=== PATIENT | male | born 1960 | race Caucasian/White ===

== ENCOUNTER 2023-07-19 09:40 | Outpatient (CLI) | payer OTHER ==
[2023-07-19 11:32] LABS: Anion Gap 12 mmol/L (10-20); BUN (Urea Nitrogen) 13 mg/dL (8.4-25.7); Calc. Creatinine Clearance 0 mL/min (70-130); Carbon Dioxide 22 mmol/L (23-31); Chloride 105 mmol/L (98-107); Estimated GFR 98; Glucose 91 mg/dL (80-115); Potassium 4.4 mmol/L (3.5-5.1); Sodium 135 mmol/L (136-145)
== END 2023-07-19 09:41 | disposition home or self-care (01) ==
LOC: LABBT 09:40
PROVIDERS: ATTEND Surgery Surgery of the Hand
DX: Z01.818 Encounter for other preprocedural examination (principal); M18.12 Unilateral primary osteoarthritis of first carpometacarpal joint, left hand
CPT/HCPCS: 80048; 93005; 93010

== ENCOUNTER → 2023-07-20 | Day surgery (SDC) | payer OTHER ==
[2023-07-18 12:05] VITALS: BMI 26.4
[~2023-07-20] MED LIST: Bupivacaine PF 0.5% 30 ML VIAL ONE; EPINEPHrine 1 MG/ML AMP ONE; Famotidine/PF 20 mg/2ml Vial ONE; Glycopyrrolate 0.2 MG/ML 5 ML SYRINGE ONE; Ketorolac Tromethamine 30 MG/ML VIAL ONE; Lidocaine 1% PF 5 ML VIAL ONE; Metoclopramide HCl 10 MG/2 ML VIAL ONE; Ondansetron PF 4 MG/2 ML Vial ONE; PHENYLEPHRINE-NS 100 MCG/ML 10 ML SYRINGE ONE; PROPOFOL 200 MG/20 ML VIAL ONE; ePHEDrine Sulfate 50 MG/10 ML VIAL ONE; fentaNYL 50 mcg/mL 1 mL Vial ONE
== END ==
LOC: SDC 10:36
PROVIDERS: ATTEND Surgery Surgery of the Hand
PROC: 0RQS0ZZ Repair Right Carpometacarpal Joint, Open Approach (ICD-10-PCS; principal; 2023-07-20)
DX: M18.11 Unilateral primary osteoarthritis of first carpometacarpal joint, right hand (principal); F41.9 Anxiety disorder, unspecified; F32.A Depression, unspecified; K21.9 Gastro-esophageal reflux disease without esophagitis; Z91.09 Other allergy status, other than to drugs and biological substances; Z79.899 Other long term (current) drug therapy
CPT/HCPCS: C1713; J0171; J1885; J2405; J2704; J2765; J3010; S0020; S0028

== ENCOUNTER 2023-08-11 06:50 | Day surgery (SDC) | payer OTHER ==
[2023-08-09 12:20] VITALS: BMI 26.9
[2023-08-11] MEDS ORDERED: Ropivacaine 0.2% HCl/PF 20 ML ONE (08:15)
[2023-08-11] MEDS ORDERED: fentaNYL 50 mcg/mL 1 mL Vial ONE (08:15)
[2023-08-11] MEDS ORDERED: Midazolam HCl 2 mg/2 ml Vial ONE (08:15)
[2023-08-11] MEDS ORDERED: Ropivacaine 0.5% HCl/PF (150 MG/30 ML VIAL) ONE (08:15)
[2023-08-11] MEDS ORDERED: EPINEPHrine 1 MG/ML AMP ONE (09:11)
[2023-08-11] MEDS ORDERED: Lidocaine 1% (PF) 30 ML VIAL ONE (09:11)
[2023-08-11] MEDS ORDERED: CEFAZOLIN 2 GM VIAL ONE (09:20)
[2023-08-11] MEDS ORDERED: Sodium Chloride 0.9% 100 ML ONE (09:20)
[2023-08-11] MEDS ORDERED: HYDROcodone/Acetaminophen 10/325 mg Tablet PO PRN ×2 (09:30)
[2023-08-11] MEDS ORDERED: Ondansetron PF 4 MG/2 ML Vial IVP PRN (09:30)
[2023-08-11] MEDS ORDERED: Promethazine HCl 25 MG/ML VIAL IM PRN (09:30)
[2023-08-11] MEDS ORDERED: traMADol HCl 50 MG TAB PO PRN ×2 (09:30)
[2023-08-11] MEDS ORDERED: Zolpidem Tartrate 5 MG TAB PO PRN (09:30)
[2023-08-11] MEDS ORDERED: Ropivacaine 0.2% 550 ML 550 ML NERVE BLCK SCH (09:30)
[2023-08-11] MEDS ORDERED: Rocuronium Bromide 10 MG/ML (10ML VIAL) ONE (10:09)
[2023-08-11] MEDS ORDERED: ePHEDrine Sulfate 50 MG/10 ML VIAL ONE (10:09)
[2023-08-11] MEDS ORDERED: PHENYLEPHRINE-NS 100 MCG/ML 10 ML SYRINGE ONE (10:09)
[2023-08-11] MEDS ORDERED: Ondansetron PF 4 MG/2 ML Vial ONE (10:09)
[2023-08-11] MEDS ORDERED: Lidocaine 1% PF 5 ML VIAL ONE (10:09)
[2023-08-11] MEDS ORDERED: PROPOFOL 200 MG/20 ML VIAL ONE (10:09)
[2023-08-11] MEDS ORDERED: Ketorolac Tromethamine 30 MG/ML VIAL IVP SCH (12:00)
== END 2023-08-11 13:45 | disposition home or self-care (01) ==
LOC: SDC 06:50
PROVIDERS: ATTEND Orthopaedic Surgery
DX: S46.011A Strain of muscle(s) and tendon(s) of the rotator cuff of right shoulder, initial encounter (principal); S43.431A Superior glenoid labrum lesion of right shoulder, initial encounter; F32.A Depression, unspecified; F41.9 Anxiety disorder, unspecified; K21.9 Gastro-esophageal reflux disease without esophagitis; C61 Malignant neoplasm of prostate; Z79.899 Other long term (current) drug therapy; Z96.652 Presence of left artificial knee joint; Z79.4 Long term (current) use of insulin
CPT/HCPCS: A4306; C1713; J0171; J2001; J2250; J2405; J2704; J2795; J3010; J3490

== ENCOUNTER 2023-12-30 11:48 | Observation (INO) | payer OTHER ==
[2023-12-30] MEDS ORDERED: Aspirin Chewable 81 MG TAB ONE (12:12)
[2023-12-30 12:14] LABS: #Basophils 0.1 thou/uL (0.0-0.2); #Eosinphils 0.1 thou/uL (0.0-0.7); #Monocytes 1.2 thou/uL (0.11-0.59); #Neutrophils 12.6 thou/uL (1.40-6.50); %Basophils 0.4 % (0.0-1.0); %Eosinophils 0.4 % (0.0-10.0); %Lymphocytes 14.8 % (21.0-51.0); %Monocytes 7.1 % (0.0-10.0); Hematocrit 41.3 % (42.0-52.0); Hemoglobin 13.8 g/dL (14.0-18.0); Mean Corpuscular HGB CONC 33.4 g/dL (32.0-36.0); Mean Corpuscular Hemoglobin 30.5 pg (27.0-31.0); Mean Corpuscular Volume 91.4 fl (78.0-98.0); Mean Platelet Volume 9.8 fL (7.4-10.4); Platelet Count 266 10x3/uL (130-400); RBC Distribution Width 13.6 % (11.5-14.5); Red Blood Cell (RBC) Count 4.52 mill/uL (4.70-6.10); White Blood Cell (WBC) Count 16.4 10x3/uL (4.8-10.8)
[2023-12-30 12:43] LABS: ALT (SGPT) 27 U/L (8-55); AST (SGOT) 26 U/L (5-34); Albumin 3.7 g/dL (3.4-4.8); Alkaline Phosphatase 104 U/L (40-110); Anion Gap 13 mmol/L (10-20); BUN (Urea Nitrogen) 11 mg/dL (8.4-25.7); Bilirubin, Total 1.1 mg/dL (0.2-1.2); Calc. Creatinine Clearance 0 mL/min (70-130); Calcium 8.8 mg/dL (7.8-10.44); Carbon Dioxide 20 mmol/L (23-31); Chloride 108 mmol/L (98-107); Estimated GFR 76; Globulin 2.5 g/dL (2.4-3.5); Glucose 129 mg/dL (80-115); Potassium 3.5 mmol/L (3.5-5.1); Protein, Total 6.2 g/dL (5.8-8.1); Sodium 137 mmol/L (136-145)
[2023-12-30 12:44] LABS: Troponin I Less than 0.010 ng/mL (< 0.028)
[2023-12-30] MEDS ORDERED: Acetaminophen 325 MG TAB PO PRN (14:13)
[2023-12-30] MEDS ORDERED: Ondansetron PF 4 MG/2 ML Vial IVP PRN (14:13)
[2023-12-30 17:28] LABS: Troponin I 0.077 ng/mL (< 0.028)
[2023-12-30] MEDS ORDERED: Famotidine/PF 20 mg/2ml Vial ONE (21:54)
[2023-12-30] MEDS: Melatonin 3 MG TAB PO PRN (22:26)
[2023-12-30] MEDS: Famotidine/PF 20 mg/2ml Vial SLOW IVP SCH (22:27)
[2023-12-31 01:02] VITALS: BMI 26.4
[2023-12-31 03:53] LABS: #Basophils 0.1 thou/uL (0.0-0.2); #Eosinphils 0.3 thou/uL (0.0-0.7); #Neutrophils 5.9 thou/uL (1.40-6.50); %Basophils 0.6 % (0.0-1.0); %Eosinophils 3.2 % (0.0-10.0); %Lymphocytes 29.5 % (21.0-51.0); %Monocytes 9.3 % (0.0-10.0); %Neutrophils 57.3 % (42.0-75.0); Hematocrit 39.7 % (42.0-52.0); Hemoglobin 13.4 g/dL (14.0-18.0); Mean Corpuscular HGB CONC 33.8 g/dL (32.0-36.0); Mean Corpuscular Hemoglobin 30.9 pg (27.0-31.0); Mean Corpuscular Volume 91.7 fl (78.0-98.0); Mean Platelet Volume 9.6 fL (7.4-10.4); Platelet Count 277 10x3/uL (130-400); RBC Distribution Width 13.7 % (11.5-14.5); Red Blood Cell (RBC) Count 4.33 mill/uL (4.70-6.10); White Blood Cell (WBC) Count 10.3 10x3/uL (4.8-10.8)
[2023-12-31 04:07] LABS: Anion Gap 10 mmol/L (10-20); BUN (Urea Nitrogen) 11 mg/dL (8.4-25.7); Calc. Creatinine Clearance 105 mL/min (70-130); Calcium 8.6 mg/dL (7.8-10.44); Carbon Dioxide 21 mmol/L (23-31); Chloride 113 mmol/L (98-107); Estimated GFR 97; Glucose 95 mg/dL (80-115); Potassium 3.8 mmol/L (3.5-5.1); Sodium 140 mmol/L (136-145)
[2023-12-31] MEDS ORDERED: HYDROcodone/Acetaminophen 10/325 mg Tablet ONE (06:46)
[2023-12-31] MEDS: HYDROcodone/Acetaminophen 10/325 mg Tablet PO PRN (06:54)
[2023-12-31] MEDS: Aspirin 81 mg Enteric Coated Tablet PO SCH (07:26)
[2023-12-31] MEDS ORDERED: Ondansetron PF 4 MG/2 ML Vial ONE (08:02)
[2023-12-31] MEDS ORDERED: Enoxaparin 40 MG (0.4 mL) SYRINGE ONE (08:59)
[2023-12-31] MEDS ORDERED: Famotidine/PF 20 mg/2ml Vial ONE (08:59)
[2023-12-31] MEDS: Enoxaparin 40 MG (0.4 mL) SYRINGE SC SCH (09:07)
[2023-12-31] MEDS: dilTIAZem 30 MG TAB PO SCH (11:20)
[2023-12-31 15:29] VITALS: BP 123/79; TEMP 97.6
== END 2023-12-31 16:28 | disposition home or self-care (01) ==
LOC: ERS 11:48 → ERHOLD 13:45 → 2NO 12-31 13:14
PROVIDERS: ADMIT Internal Medicine; ATTEND Internal Medicine
PROC: B246YZZ Ultrasonography of Right and Left Heart using Other Contrast (ICD-10-PCS; principal; 2023-12-30)
DX: I47.10 Supraventricular tachycardia, unspecified (principal); R42 Dizziness and giddiness; G89.4 Chronic pain syndrome; C61 Malignant neoplasm of prostate; Z95.5 Presence of coronary angioplasty implant and graft; Z90.49 Acquired absence of other specified parts of digestive tract; Z90.89 Acquired absence of other organs; Z98.84 Bariatric surgery status; Z90.5 Acquired absence of kidney; Z95.0 Presence of cardiac pacemaker; Z79.82 Long term (current) use of aspirin; Z79.899 Other long term (current) drug therapy; Z95.1 Presence of aortocoronary bypass graft; Z86.73 Personal history of transient ischemic attack (TIA), and cerebral infarction without residual deficits
CPT/HCPCS: 36415; 71045; 80048; 80053; 83735; 83880; 84484; 85025; 93005; 93306; 96372; 96374; 96376; G0378; J1650; J2405; S0028

== ENCOUNTER 2024-04-25 07:34 | Day surgery (SDC) | payer OTHER ==
[2024-04-19 09:25] VITALS: BMI 25.2
[2024-04-19 10:12] LABS: Hematocrit 40.5 % (38.8-50.0); Hemoglobin 13.9 g/dL (13.5-17.5); Mean Corpuscular HGB CONC 34.3 g/dL (32.0-36.0); Mean Corpuscular Hemoglobin 31.7 pg (27.0-33.0); Mean Corpuscular Volume 92.5 fL (81.2-95.1); Mean Platelet Volume 9.8 fL (7.4-10.4); Platelet Count 341 10x3/uL (150-450); RBC Distribution Width 13.2 % (11.5-14.5); Red Blood Cell (RBC) Count 4.38 10x6/uL (4.32-5.72); White Blood Cell (WBC) Count 10.7 10x3/uL (3.5-10.5)
[2024-04-19 10:23] LABS: PTT 27.1 sec (22.0-33.0); Prothrombin Time 10.9 sec (9.5-12.1)
[2024-04-19 10:28] LABS: Anion Gap 14 mmol/L (10-20); BUN (Urea Nitrogen) 13 mg/dL (8.4-25.7); Calc. Creatinine Clearance 93 mL/min (70-130); Calcium 9.7 mg/dL (7.8-10.44); Carbon Dioxide 22 mmol/L (23-31); Chloride 106 mmol/L (98-107); Estimated GFR 92; Glucose 88 mg/dL (80-115); Potassium 4.5 mmol/L (3.5-5.1); Sodium 137 mmol/L (136-145)
[2024-04-25] MEDS ORDERED: Heparin 10,000 UNITS/ 10 ML VIAL ONE (08:34)
[2024-04-25] MEDS ORDERED: Isoproterenol 0.2 MG/1 ML AMP ONE (08:35)
[2024-04-25] MEDS ORDERED: fentaNYL 50 mcg/mL 1 mL Vial ONE (09:45)
[2024-04-25] MEDS ORDERED: Ondansetron PF 4 MG/2 ML Vial ONE (09:45)
[2024-04-25] MEDS ORDERED: PHENYLEPHRINE-NS 100 MCG/ML 10 ML SYRINGE ONE ×2 (09:46→10:30)
[2024-04-25] MEDS ORDERED: Lidocaine 1% PF 5 ML VIAL ONE (09:46)
[2024-04-25] MEDS ORDERED: PROPOFOL 20 ML ONE ×2 (09:46→11:27)
[2024-04-25] MEDS ORDERED: Dexamethasone 20 MG/5 ML VIAL ONE (10:30)
[2024-04-25] MEDS ORDERED: ePHEDrine Sulfate 50 MG/10 ML VIAL ONE (10:35)
== END 2024-04-25 15:40 | disposition home or self-care (01) ==
LOC: SDC 07:34
PROVIDERS: ATTEND Internal Medicine Cardiovascular Disease
PROC: 4A0274Z Measurement of Cardiac Electrical Activity, Via Natural or Artificial Opening (ICD-10-PCS; principal; 2024-04-25)
PROC: 4A027FZ Measurement of Cardiac Rhythm, Via Natural or Artificial Opening (ICD-10-PCS; principal; 2024-04-25)
DX: I47.10 Supraventricular tachycardia, unspecified (principal); I25.10 Atherosclerotic heart disease of native coronary artery without angina pectoris; I27.0 Primary pulmonary hypertension; G89.4 Chronic pain syndrome; Z79.899 Other long term (current) drug therapy
CPT/HCPCS: 80048; 85027; 85610; 85730; 93005; 93623; 93653; C1730; C1732; C1760; C1769; C1894; C2630; J1100; J1644; J2405; J2704; J3010

== ENCOUNTER 2024-07-25 06:57 | Inpatient (IN) | payer OTHER ==
[2024-07-25] MEDS ORDERED: PROPOFOL 20 ML ONE (08:57)
[2024-07-25] MEDS ORDERED: Midazolam HCl 2 mg/2 ml Vial ONE (08:57)
[2024-07-25] MEDS ORDERED: fentaNYL PF 100 MCG/2 ML SYRINGE ONE (08:57)
[2024-07-25] MEDS ORDERED: SUCCINYLCHOLINE/SOD CL,ISO/PF 200 MG/10 ML SYRINGE FS ONE (08:58)
[2024-07-25] MEDS ORDERED: Lidocaine 1% PF 5 ML VIAL ONE (08:58)
[2024-07-25] MEDS ORDERED: Ketamine In 0.9 % NaCl 50 MG/5 ML SYRINGE ONE (10:03)
[2024-07-25] MEDS ORDERED: Bupivacaine 0.25% HCL 30 ML VIAL ONE ×2 (10:48→12:33)
[2024-07-25] MEDS ORDERED: EPINEPHrine 1 MG/ML VIAL ONE (10:48)
[2024-07-25] MEDS ORDERED: SUGAMMADEX SODIUM 200 MG/2 ML VIAL ONE (11:14)
[2024-07-25] MEDS ORDERED: Dexmedetomidine 200 MCG/2 ML VIAL ONE (12:32)
[2024-07-25] MEDS ORDERED: Multivit, Adult Inj 10 ML VIAL IV SCH (12:45)
[2024-07-25] MEDS ORDERED: Fentanyl 250 MCG/5 ML VIAL ONE (12:51)
[2024-07-25] MEDS ORDERED: QUEtiapine 25 MG TAB PO PRN (13:08)
[2024-07-25] MEDS: Multivitamins, Adult 10 ML in Lactated Ringer's 1,000 ML IV SCH (14:26)
[2024-07-25] MEDS: Thiamine HCl 200 MG/2 ML VIAL SLOW IVP SCH (14:29)
[2024-07-25] MEDS: dilTIAZem 30 MG TAB PO SCH (14:30)
[2024-07-25] MEDS: Morphine 4 MG/ML VIAL SLOW IVP PRN (15:00)
[2024-07-25] MEDS: Lactated Ringer's 1,000 ML IV SCH ×3 (15:12→18:20)
[2024-07-25] MEDS: Albumin 25% 25 GM (100 mL) BOT IVPB SCH (17:08)
[2024-07-25] MEDS: Ketorolac Tromethamine 30 MG (1 mL) VIAL IVP SCH (18:20)
[2024-07-25] MEDS ORDERED: Lactated Ringer's 1,000 ML IV SCH (22:00)
[2024-07-25] MEDS: Enoxaparin 40 MG (0.4 mL) SYRINGE SC SCH (22:18)
[2024-07-25] MEDS: Tamsulosin HCl 0.4 MG CAP PO SCH (22:18)
[2024-07-26] MEDS: Morphine 2 MG/ML VIAL SLOW IVP PRN (02:26)
[2024-07-26 04:07] LABS: Hematocrit 40.7 % (42.0-52.0); Hemoglobin 14.2 g/dL (14.0-18.0); Mean Corpuscular HGB CONC 34.9 g/dL (32.0-36.0); Mean Corpuscular Hemoglobin 30.8 pg (27.0-31.0); Mean Corpuscular Volume 88.3 fL (78.0-98.0); Mean Platelet Volume 10.3 fL (7.4-10.4); Platelet Count 312 10x3/uL (130-400); RBC Distribution Width 13.2 % (11.5-14.5); Red Blood Cell (RBC) Count 4.61 mill/uL (4.70-6.10)
[2024-07-26 04:19] LABS: Lactic Acid 3.72 mmol/L (0.5-2.2)
[2024-07-26 04:24] LABS: ALT (SGPT) 154 U/L (8-55); AST (SGOT) 78 U/L (5-34); Albumin 3.3 g/dL (3.4-4.8); Alkaline Phosphatase 113 U/L (40-110); Anion Gap 14 mmol/L (10-20); BUN (Urea Nitrogen) 24 mg/dL (8.4-25.7); Bilirubin, Total 1.6 mg/dL (0.2-1.2); Calc. Creatinine Clearance 80 mL/min (70-130); Calcium 8.3 mg/dL (7.8-10.44); Carbon Dioxide 16 mmol/L (23-31); Chloride 109 mmol/L (98-107); Estimated GFR 77; Globulin 2.8 g/dL (2.4-3.5); Glucose 163 mg/dL (80-115); Potassium 4.3 mmol/L (3.5-5.1); Protein, Total 6.1 g/dL (5.8-8.1); Sodium 135 mmol/L (136-145)
[2024-07-26 04:26] LABS: ALT (SGPT) 155 U/L (8-55); AST (SGOT) 79 U/L (5-34); Albumin 3.3 g/dL (3.4-4.8); Alkaline Phosphatase 113 U/L (40-110); Anion Gap 14 mmol/L (10-20); BUN (Urea Nitrogen) 24 mg/dL (8.4-25.7); Bilirubin, Total 1.6 mg/dL (0.2-1.2); Calc. Creatinine Clearance 81 mL/min (70-130); Calcium 8.4 mg/dL (7.8-10.44); Carbon Dioxide 16 mmol/L (23-31); Chloride 109 mmol/L (98-107); Estimated GFR 77; Globulin 2.9 g/dL (2.4-3.5); Glucose 164 mg/dL (80-115); Magnesium 1.6 mg/dL (1.6-2.6); Potassium 4.3 mmol/L (3.5-5.1); Protein, Total 6.2 g/dL (5.8-8.1); Sodium 135 mmol/L (136-145)
[2024-07-26] MEDS: Piperacillin/Tazobactam 3.375 GM in Sodium Chloride 0.9% 100 ML IVPB SCH ×2 (04:43→11:25)
[2024-07-26] MEDS: Acetaminophen 650 MG Suppository PR PRN (04:44)
[2024-07-26 04:51] LABS: Anisocytosis MARKED = >30 cells HPF (0-5); Band 34 % (5-11); Large Platelets 9.3 % (0-5); Lymphocytes 31 % (21-51); Macrocytosis MODERATE=16-30 cells HPF (0-5); Metamyelocyte 7 % (0-0); Monocytes 11 % (0-10); Neutrophil 16 % (42-75); Platelet Adequacy Comment Platelets Normal; Poikilocytosis SLIGHT = 6-15 cells HPF (0-5); Polychromasia SLIGHT = 2-3 cells HPF (0-2); Reactive Lymphocytes 2 % (0-10); Target Cells SLIGHT = 2-5 cells HPF (0-1)
[2024-07-26 05:24] LABS: Hematocrit 41.8 % (42.0-52.0); Hemoglobin 14.2 g/dL (14.0-18.0); Mean Corpuscular Hemoglobin 30.9 pg (27.0-31.0); Mean Corpuscular Volume 90.9 fL (78.0-98.0); Mean Platelet Volume 9.9 fL (7.4-10.4); Platelet Count 298 10x3/uL (130-400); RBC Distribution Width 13.3 % (11.5-14.5)
[2024-07-26] MEDS: Sodium Chloride 0.9% 1,000 ML IV SCH (05:42)
[2024-07-26 06:16] LABS: Anisocytosis SLIGHT = 6-15 cells HPF (0-5); Band 37 % (5-11); Burr Cells SLIGHT = 2-5 cells HPF (0-1); Large Platelets 8.8 % (0-5); Lymphocytes 33 % (21-51); Metamyelocyte 10 % (0-0); Monocytes 10 % (0-10); Myelocyte 3 % (0-0); Neutrophil 6 % (42-75); Ovalocytes SLIGHT = 2-5 cells HPF (0-1); Platelet Adequacy Comment Platelets Normal; Polychromasia SLIGHT = 2-3 cells HPF (0-2); Target Cells SLIGHT = 2-5 cells HPF (0-1)
[2024-07-26 06:26] LABS: Hematocrit 39.2 % (42.0-52.0); Hemoglobin 13.6 g/dL (14.0-18.0); Mean Corpuscular HGB CONC 34.7 g/dL (32.0-36.0); Mean Corpuscular Hemoglobin 30.9 pg (27.0-31.0); Mean Corpuscular Volume 89.1 fL (78.0-98.0); Platelet Count 298 10x3/uL (130-400); RBC Distribution Width 13.2 % (11.5-14.5)
[2024-07-26] MEDS: Sodium Bicarb 50 MEQ/50 ML Abboject 8.4% SYRINGE IVP SCH (06:32)
[2024-07-26 06:42] LABS: Lactic Acid 3.38 mmol/L (0.5-2.2)
[2024-07-26 06:46] LABS: ALT (SGPT) 130 U/L (8-55); AST (SGOT) 61 U/L (5-34); Alkaline Phosphatase 96 U/L (40-110); Anion Gap 14 mmol/L (10-20); BUN (Urea Nitrogen) 25 mg/dL (8.4-25.7); Bilirubin, Total 1.7 mg/dL (0.2-1.2); Calc. Creatinine Clearance 83 mL/min (70-130); Calcium 8.1 mg/dL (7.8-10.44); Carbon Dioxide 19 mmol/L (23-31); Chloride 110 mmol/L (98-107); Estimated GFR 79; Globulin 2.4 g/dL (2.4-3.5); Glucose 131 mg/dL (80-115); Potassium 3.8 mmol/L (3.5-5.1); Protein, Total 5.4 g/dL (5.8-8.1); Sodium 139 mmol/L (136-145)
[2024-07-26] MEDS ORDERED: fentaNYL PF 100 MCG/2 ML SYRINGE ONE (07:34)
[2024-07-26] MEDS ORDERED: Rocuronium Bromide 10 MG/ML (10ML VIAL) ONE ×2 (07:34→09:25)
[2024-07-26] MEDS ORDERED: Dexamethasone 20 MG/5 ML VIAL ONE (07:34)
[2024-07-26] MEDS ORDERED: Ondansetron PF 4 MG/2 ML Vial ONE (07:34)
[2024-07-26] MEDS ORDERED: Lidocaine 1% PF 5 ML VIAL ONE (07:34)
[2024-07-26] MEDS ORDERED: Midazolam HCl 2 mg/2 ml Vial ONE (07:35)
[2024-07-26] MEDS ORDERED: SUGAMMADEX SODIUM 200 MG/2 ML VIAL ONE (07:35)
[2024-07-26] MEDS ORDERED: PROPOFOL 20 ML ONE (07:35)
[2024-07-26] MEDS ORDERED: PHENYLEPHRINE-NS 100 MCG/ML 10 ML SYRINGE ONE ×3 (07:52→09:42)
[2024-07-26] MEDS ORDERED: Glycopyrrolate 0.2 MG/ML 5 ML SYRINGE ONE (07:52)
[2024-07-26] MEDS ORDERED: Ketamine In 0.9 % NaCl 50 MG/5 ML SYRINGE ONE (07:52)
[2024-07-26] MEDS ORDERED: ePHEDrine Sulfate 50 MG/10 ML VIAL ONE (07:53)
[2024-07-26 07:56] LABS: Band 35 % (5-11); Burr Cells MODERATE= 6-15 cells HPF (0-1); Large Platelets 21.4 % (0-5); Lymphocytes 20 % (21-51); Metamyelocyte 5 % (0-0); Monocytes 13 % (0-10); Neutrophil 26 % (42-75); Platelet Adequacy Comment Platelets Normal; Poikilocytosis MODERATE=16-30 cells HPF (0-5); Reactive Lymphocytes 1 % (0-10); Schistocytes SLIGHT = 2-5 cells HPF (0-1)
[2024-07-26] MEDS ORDERED: Sodium Chloride 0.9% 100 ML ONE (08:06)
[2024-07-26] MEDS ORDERED: Piperacillin/Tazobactam 3.375 GM VIAL ONE (08:20)
[2024-07-26] MEDS ORDERED: Iopamidol-370 76% 500 ML MDV (1 ML CHARGE) ONE (09:34)
[2024-07-26] MEDS ORDERED: Albuterol 2.5 MG (3 mL) NEB NEB PRN (11:05)
[2024-07-26 11:06] LABS: Actual Bicarbonate (HCO3a) 21.9 mEq/L (22-28); Base Excess (BEa) -4.8 mEq/L (-2.0 to +3.0); CO2 Tension 46.6 mmHg (35.0-45.0); Calcium, Ionized (arterial) 1.05 mmol/L (1.12-1.30); Carboxyhemoglobin (COHb) 0.3 gm% (0.0-3.0); Hematocrit-ABG 40 % (42.0-52.0); Hemoglobin (Hb) 13.7 g/dL (14.0-18.0); O2 Tension (PaO2), arterial 81.8 mmHg (> 80.0); Potassium - ABG Lab 4.31 mmol/L (3.70-5.30); pH, Arterial 7.289 (7.35-7.45)
[2024-07-26 11:07] LABS: Puncture Site Right Radial artery
[2024-07-26] MEDS: Propofol 1,000 MG/100 ML VIAL IV ONE (11:10)
[2024-07-26] MEDS: Propofol 1,000 MG/100 ML VIAL IV PRN (11:11)
[2024-07-26] MEDS ORDERED: Fentanyl BOLUS 250 ML IVPB PRN (11:15)
[2024-07-26] MEDS ORDERED: Propofol BOLUS 1,000 MG/100 ML VIAL IV PRN (11:15)
[2024-07-26] MEDS: Fentanyl CADD 100 ML IV SCH (11:22)
[2024-07-26] MEDS: Lactated Ringer's 1,000 ML IV SCH ×2 (11:23→14:05)
[2024-07-26] MEDS: Magnesium 2 GM/50 ML(in water) 2 GM in Premix 1 BAG IVPB SCH ×2 (11:23→11:24)
[2024-07-26] MEDS: Pantoprazole 40 MG VIAL IVP SCH (11:24)
[2024-07-26] MEDS: Fentanyl CADD 100 ML ONE (11:25)
[2024-07-26] MEDS: Albumin 25% 25 GM (100 mL) BOT IVPB SCH (11:53)
[2024-07-26] MEDS: Ventilator Sedation Protocol 1 EACH FS ONE (11:54)
[2024-07-26] MEDS: dilTIAZem 30 MG TAB PER TUBE SCH (16:22)
[2024-07-26] MEDS: Lorazepam 2 MG/ML VIAL SLOW IVP PRN (18:44)
[2024-07-26 18:59] LABS: #Basophils 0.03 10x3/uL (0.0-0.2); #Eosinphils Less than 0.03 10x3/uL (0.0-0.7); %Basophils 0.4 % (0.0-1.0); %Lymphocytes 8.2 % (21.0-51.0); %Neutrophils 84.6 % (42.0-75.0); Hematocrit 33.1 % (42.0-52.0); Hemoglobin 11.1 g/dL (14.0-18.0); Mean Corpuscular HGB CONC 33.5 g/dL (32.0-36.0); Mean Corpuscular Hemoglobin 31.6 pg (27.0-31.0); Mean Corpuscular Volume 94.3 fL (78.0-98.0); Mean Platelet Volume 9.7 fL (7.4-10.4); Platelet Count 230 10x3/uL (130-400); RBC Distribution Width 13.7 % (11.5-14.5); Red Blood Cell (RBC) Count 3.51 mill/uL (4.70-6.10)
[2024-07-26 19:10] LABS: Anion Gap 13 mmol/L (10-20); BUN (Urea Nitrogen) 23 mg/dL (8.4-25.7); Calc. Creatinine Clearance 83 mL/min (70-130); Calcium 7.9 mg/dL (7.8-10.44); Carbon Dioxide 22 mmol/L (23-31); Chloride 110 mmol/L (98-107); Estimated GFR 79; Glucose 156 mg/dL (80-115); Potassium 4.5 mmol/L (3.5-5.1); Sodium 140 mmol/L (136-145)
[2024-07-26 19:17] LABS: Burr Cells SLIGHT = 2-5 cells HPF (0-1); Macrocytosis SLIGHT = 6-15 cells HPF (0-5); Platelet Adequacy Comment Platelets Normal; Poikilocytosis SLIGHT = 6-15 cells HPF (0-5)
[2024-07-27] MEDS ORDERED: Sodium Chloride 0.9% 500 ML IV SCH (00:15)
[2024-07-27] MEDS ORDERED: Phenylephrine 40 MG, Admixture Fee 1 EACH in Sodium Chloride 0.9% 250 ML 250 ML IVPB SCH (00:15)
[2024-07-27] MEDS: Sodium Chloride 0.9% 1,000 ML IV SCH (00:22)
[2024-07-27] MEDS: Amiodarone 150 MG, Admixture Fee 1 EACH in Dextrose 5% in Water 100 ML IVPB SCH (01:00)
[2024-07-27] MEDS: Amiodarone 450 MG in Dextrose 5% in Water 250 ML IVPB SCH (01:11)
[2024-07-27] MEDS: Vasopressin In 0.9 % NaCl 40 UNIT in Premix 1 BAG IV SCH (01:52)
[2024-07-27] MEDS: Phenylephrine 40 MG/NS 250 ML 40 MG in Premix 1 BAG IVPB SCH (03:00)
[2024-07-27 05:35] LABS: Lactic Acid 3.61 mmol/L (0.5-2.2)
[2024-07-27 05:40] LABS: ALT (SGPT) 64 U/L (8-55); AST (SGOT) 24 U/L (5-34); Alkaline Phosphatase 55 U/L (40-110); Anion Gap 13 mmol/L (10-20); BUN (Urea Nitrogen) 23 mg/dL (8.4-25.7); Bilirubin, Total 1.7 mg/dL (0.2-1.2); Calc. Creatinine Clearance 81 mL/min (70-130); Calcium 8.1 mg/dL (7.8-10.44); Carbon Dioxide 22 mmol/L (23-31); Chloride 112 mmol/L (98-107); Estimated GFR 77; Globulin 2.3 g/dL (2.4-3.5); Glucose 140 mg/dL (80-115); Magnesium 2.3 mg/dL (1.6-2.6); Potassium 4.5 mmol/L (3.5-5.1); Protein, Total 5.3 g/dL (5.8-8.1); Sodium 142 mmol/L (136-145)
[2024-07-27 05:42] LABS: Mean Corpuscular HGB CONC 32.3 g/dL (32.0-36.0); Mean Corpuscular Hemoglobin 31.1 pg (27.0-31.0); Mean Corpuscular Volume 96.3 fL (78.0-98.0); Mean Platelet Volume 10.2 fL (7.4-10.4); Platelet Count 202 10x3/uL (130-400); RBC Distribution Width 13.8 % (11.5-14.5); Red Blood Cell (RBC) Count 3.22 mill/uL (4.70-6.10)
[2024-07-27 07:01] LABS: Anisocytosis MODERATE=16-30 cells HPF (0-5); Band 44 % (5-11); Large Platelets 1.9 % (0-5); Lymphocytes 10 % (21-51); Macrocytosis SLIGHT = 6-15 cells HPF (0-5); Metamyelocyte 1 % (0-0); Monocytes 8 % (0-10); Myelocyte 2 % (0-0); Neutrophil 35 % (42-75); Platelet Adequacy Comment Platelets Normal; Polychromasia SLIGHT = 2-3 cells HPF (0-2); Smudge Cells 1.9 %
[2024-07-27] MEDS: Escitalopram Oxalate 20 mg Tablet PER TUBE SCH (08:22)
[2024-07-27] MEDS: Metoprolol Tartrate 5 MG (5 mL) VIAL IVP SCH (14:34)
[2024-07-27] MEDS ORDERED: Dexmedetomidine In 0.9 % NaCl 100 ML IV SCH (14:45)
[2024-07-27] MEDS: Dexmedetomidine In 0.9 % NaCl 100 ML IVPB SCH (15:07)
[2024-07-27] MEDS: Lactated Ringer's 1,000 ML IV SCH (16:39)
[2024-07-27] MEDS: Albumin 25% 25 GM (100 mL) BOT IVPB SCH (16:46)
[2024-07-27 17:50] LABS: #Basophils 0.06 10x3/uL (0.0-0.2); %Basophils 0.5 % (0.0-1.0); %Eosinophils 0.2 % (0.0-10.0); %Lymphocytes 8.2 % (21.0-51.0); %Monocytes 8.1 % (0.0-10.0); %Neutrophils 82.3 % (42.0-75.0); Hematocrit 28.9 % (42.0-52.0); Hemoglobin 9.7 g/dL (14.0-18.0); Mean Corpuscular HGB CONC 33.6 g/dL (32.0-36.0); Mean Corpuscular Hemoglobin 30.8 pg (27.0-31.0); Mean Corpuscular Volume 91.7 fL (78.0-98.0); Mean Platelet Volume 10.8 fL (7.4-10.4); Platelet Count 198 10x3/uL (130-400); RBC Distribution Width 13.9 % (11.5-14.5); Red Blood Cell (RBC) Count 3.15 mill/uL (4.70-6.10)
[2024-07-27 17:51] LABS: Hematocrit 28.6 % (42.0-52.0); Hemoglobin 9.4 g/dL (14.0-18.0); Mean Corpuscular HGB CONC 32.9 g/dL (32.0-36.0); Mean Corpuscular Hemoglobin 31.2 pg (27.0-31.0); Mean Platelet Volume 10.7 fL (7.4-10.4); Platelet Count 196 10x3/uL (130-400); RBC Distribution Width 13.9 % (11.5-14.5); Red Blood Cell (RBC) Count 3.01 mill/uL (4.70-6.10)
[2024-07-27 17:55] LABS: Anion Gap 11 mmol/L (10-20); BUN (Urea Nitrogen) 19 mg/dL (8.4-25.7); Calc. Creatinine Clearance 116 mL/min (70-130); Calcium 8.1 mg/dL (7.8-10.44); Carbon Dioxide 21 mmol/L (23-31); Chloride 111 mmol/L (98-107); Estimated GFR 98; Glucose 99 mg/dL (80-115); Potassium 4.4 mmol/L (3.5-5.1); Sodium 139 mmol/L (136-145)
[2024-07-27 18:12] LABS: Anisocytosis SLIGHT = 6-15 cells HPF (0-5); Burr Cells SLIGHT = 2-5 cells HPF (0-1); Macrocytosis SLIGHT = 6-15 cells HPF (0-5); Platelet Adequacy Comment Platelets Normal; Poikilocytosis SLIGHT = 6-15 cells HPF (0-5); Polychromasia SLIGHT = 2-3 cells HPF (0-2)
[2024-07-27 18:14] LABS: #Basophils 0.04 10x3/uL (0.0-0.2); #Eosinphils Less than 0.03 10x3/uL (0.0-0.7); %Basophils 0.3 % (0.0-1.0); %Eosinophils 0.2 % (0.0-10.0); %Lymphocytes 8.6 % (21.0-51.0); %Monocytes 7.9 % (0.0-10.0); %Neutrophils 82.3 % (42.0-75.0)
[2024-07-27 18:43] LABS: Band 32 % (5-11); Burr Cells SLIGHT = 2-5 cells HPF (0-1); Large Platelets 2.9 % (0-5); Lymphocytes 7 % (21-51); Metamyelocyte 2 % (0-0); Monocytes 9 % (0-10); Neutrophil 49 % (42-75); Platelet Adequacy Comment Platelets Normal; Polychromasia SLIGHT = 2-3 cells HPF (0-2); Reactive Lymphocytes 1 % (0-10)
[2024-07-27 18:49] LABS: Vacuoles SLIGHT
[2024-07-27] MEDS: Escitalopram Oxalate 20 mg Tablet PO SCH (19:41)
[2024-07-27] MEDS: Amiodarone 200 MG TAB PER TUBE SCH (20:00)
[2024-07-28 07:30] LABS: Hematocrit 26.5 % (42.0-52.0); Hemoglobin 8.8 g/dL (14.0-18.0); Mean Corpuscular HGB CONC 33.2 g/dL (32.0-36.0); Mean Corpuscular Hemoglobin 31.2 pg (27.0-31.0); Mean Platelet Volume 10.5 fL (7.4-10.4); Platelet Count 217 10x3/uL (130-400); RBC Distribution Width 14.1 % (11.5-14.5); Red Blood Cell (RBC) Count 2.82 mill/uL (4.70-6.10)
[2024-07-28 07:56] LABS: Anisocytosis MODERATE=16-30 cells HPF (0-5); Band 18 % (5-11); Burr Cells MODERATE= 6-15 cells HPF (0-1); Eosinophils 2 % (0-10); Lymphocytes 3 % (21-51); Macrocytosis SLIGHT = 6-15 cells HPF (0-5); Monocytes 7 % (0-10); Neutrophil 70 % (42-75); Ovalocytes SLIGHT = 2-5 cells HPF (0-1); Platelet Adequacy Comment Platelets Normal; Polychromasia SLIGHT = 2-3 cells HPF (0-2); Target Cells SLIGHT = 2-5 cells HPF (0-1)
[2024-07-28 08:00] LABS: ALT (SGPT) 41 U/L (8-55); AST (SGOT) 18 U/L (5-34); Albumin 3.2 g/dL (3.4-4.8); Alkaline Phosphatase 52 U/L (40-110); Anion Gap 11 mmol/L (10-20); BUN (Urea Nitrogen) 20 mg/dL (8.4-25.7); Bilirubin, Total 1.7 mg/dL (0.2-1.2); Calc. Creatinine Clearance 129 mL/min (70-130); Calcium 8.3 mg/dL (7.8-10.44); Carbon Dioxide 23 mmol/L (23-31); Chloride 111 mmol/L (98-107); Estimated GFR 99; Globulin 2.4 g/dL (2.4-3.5); Glucose 100 mg/dL (80-115); Potassium 4.2 mmol/L (3.5-5.1); Protein, Total 5.6 g/dL (5.8-8.1); Sodium 141 mmol/L (136-145)
[2024-07-29 04:44] LABS: #Basophils 0.03 10x3/uL (0.0-0.2); %Basophils 0.2 % (0.0-1.0); %Eosinophils 1.9 % (0.0-10.0); %Lymphocytes 8.2 % (21.0-51.0); %Monocytes 15.9 % (0.0-10.0); %Neutrophils 73.3 % (42.0-75.0); Hematocrit 29.1 % (42.0-52.0); Hemoglobin 9.3 g/dL (14.0-18.0); Mean Corpuscular Hemoglobin 31.1 pg (27.0-31.0); Mean Corpuscular Volume 97.3 fL (78.0-98.0); Mean Platelet Volume 10.9 fL (7.4-10.4); Platelet Count 228 10x3/uL (130-400); Red Blood Cell (RBC) Count 2.99 mill/uL (4.70-6.10)
[2024-07-29 04:54] LABS: Anion Gap 14 mmol/L (10-20); BUN (Urea Nitrogen) 16 mg/dL (8.4-25.7); Calc. Creatinine Clearance 134 mL/min (70-130); Calcium 8.2 mg/dL (7.8-10.44); Carbon Dioxide 20 mmol/L (23-31); Chloride 110 mmol/L (98-107); Estimated GFR 100; Glucose 103 mg/dL (80-115); Potassium 3.8 mmol/L (3.5-5.1); Sodium 140 mmol/L (136-145)
[2024-07-29] MEDS ORDERED: TICAGRELOR 90 MG TABLET PO SCH (09:00)
[2024-07-29] MEDS ORDERED: Aspirin 81 mg Enteric Coated Tablet PO SCH (09:00)
[2024-07-29] MEDS ORDERED: Lisinopril 5 MG TAB PO SCH (09:00)
[2024-07-29] MEDS ORDERED: Atorvastatin Calcium 40 MG TAB PO SCH (09:00)
[2024-07-29] MEDS ORDERED: Metoprolol Tartrate 25 MG TAB PO SCH (09:00)
[2024-07-29] MEDS: Morphine 2 MG/ML VIAL SLOW IVP PRN ×2 (13:08→22:21)
[2024-07-29 13:16] LABS: Actual Bicarbonate (HCO3a) 21.1 mEq/L (22-28); Base Excess (BEa) -0.4 mEq/L (-2.0 to +3.0); CO2 Tension 25.2 mmHg (35.0-45.0); Calcium, Ionized (arterial) 1.13 mmol/L (1.12-1.30); Hematocrit-ABG 31 % (42.0-52.0); Hemoglobin (Hb) 10.5 g/dL (14.0-18.0); Potassium - ABG Lab 3.46 mmol/L (3.70-5.30); pH, Arterial 7.541 (7.35-7.45)
[2024-07-29] MEDS: Furosemide 40 MG (4 mL) VIAL SLOW IVP SCH (15:43)
[2024-07-29] MEDS ORDERED: Lactated Ringer's 1,000 ML IV SCH (18:00)
[2024-07-30 06:03] LABS: Hematocrit 29.3 % (42.0-52.0); Hemoglobin 10.1 g/dL (14.0-18.0); Mean Corpuscular HGB CONC 34.5 g/dL (32.0-36.0); Mean Corpuscular Hemoglobin 30.6 pg (27.0-31.0); Mean Corpuscular Volume 88.8 fL (78.0-98.0); Mean Platelet Volume 10.7 fL (7.4-10.4); Platelet Count 248 10x3/uL (130-400); RBC Distribution Width 13.4 % (11.5-14.5)
[2024-07-30 06:22] LABS: Band 5 % (5-11); Lymphocytes 4 % (21-51); Monocytes 21 % (0-10); Myelocyte 1 % (0-0); Neutrophil 68 % (42-75); Platelet Adequacy Comment Platelets Normal; Polychromasia SLIGHT = 2-3 cells HPF (0-2); Reactive Lymphocytes 1 % (0-10); Toxic Granulation SLIGHT
[2024-07-30 06:30] LABS: Anion Gap 14 mmol/L (10-20); BUN (Urea Nitrogen) 13 mg/dL (8.4-25.7); Calc. Creatinine Clearance 128 mL/min (70-130); Calcium 8.5 mg/dL (7.8-10.44); Carbon Dioxide 23 mmol/L (23-31); Chloride 105 mmol/L (98-107); Estimated GFR 100; Glucose 109 mg/dL (80-115); Potassium 3.1 mmol/L (3.5-5.1); Sodium 139 mmol/L (136-145)
[2024-07-30] MEDS: Potassium Bicarbonate/Cit Ac 20 MEQ TAB PER TUBE SCH ×2 (08:11→09:52)
[2024-07-30 11:40] LABS: O2 Tension (PaO2), arterial 59.4 mmHg (> 80.0); Puncture Site Right Brachial art
[2024-07-30] MEDS ORDERED: GASTROGRAFIN 30 ML BOT ONE (12:32)
[2024-07-30 16:09] LABS: Anion Gap 12 mmol/L (10-20); BUN (Urea Nitrogen) 12 mg/dL (8.4-25.7); Calc. Creatinine Clearance 122 mL/min (70-130); Calcium 8.6 mg/dL (7.8-10.44); Carbon Dioxide 24 mmol/L (23-31); Chloride 105 mmol/L (98-107); Estimated GFR 99; Glucose 101 mg/dL (80-115); Potassium 3.5 mmol/L (3.5-5.1); Sodium 137 mmol/L (136-145)
[2024-07-30] MEDS: QUEtiapine 25 MG TAB PER TUBE PRN (21:56)
[2024-07-30] MEDS: Ketorolac Tromethamine 30 MG (1 mL) VIAL IVP PRN (21:57)
[2024-07-31 00:37] LABS: Actual Bicarbonate (HCO3v) 22.4 mEq/L (22-28); Base Excess -0.5 mEq/L (-2.0 to +3.0); Chloride (VBG) 105 mmol/L (98-106); Hematocrit-VBG 33 % (42.0-52.0); Hemoglobin (Hb) 11.2 g/dL (13.1-17.2); Potassium (VBG) 3.68 mmol/L (3.70-5.30); Sodium 138 mmol/L (133-146); pH (venous) 7.478 (7.32-7.43)
[2024-07-31 00:51] LABS: Lactic Acid 0.96 mmol/L (0.5-2.2)
[2024-07-31 00:55] LABS: ALT (SGPT) 43 U/L (8-55); AST (SGOT) 42 U/L (5-34); Albumin 2.9 g/dL (3.4-4.8); Alkaline Phosphatase 67 U/L (40-110); Anion Gap 16 mmol/L (10-20); BUN (Urea Nitrogen) 13 mg/dL (8.4-25.7); Bilirubin, Total 1.5 mg/dL (0.2-1.2); Calc. Creatinine Clearance 121 mL/min (70-130); Calcium 8.7 mg/dL (7.8-10.44); Carbon Dioxide 20 mmol/L (23-31); Chloride 107 mmol/L (98-107); Estimated GFR 98; Globulin 3.2 g/dL (2.4-3.5); Glucose 107 mg/dL (80-115); Potassium 3.6 mmol/L (3.5-5.1); Protein, Total 6.1 g/dL (5.8-8.1); Sodium 139 mmol/L (136-145)
[2024-07-31 01:27] LABS: Hematocrit 31.3 % (42.0-52.0); Hemoglobin 10.7 g/dL (14.0-18.0); Mean Corpuscular HGB CONC 34.2 g/dL (32.0-36.0); Mean Corpuscular Hemoglobin 30.7 pg (27.0-31.0); Mean Corpuscular Volume 89.9 fL (78.0-98.0); Platelet Count 291 10x3/uL (130-400); RBC Distribution Width 13.4 % (11.5-14.5); Red Blood Cell (RBC) Count 3.48 mill/uL (4.70-6.10)
[2024-07-31 01:38] LABS: Anisocytosis SLIGHT = 6-15 cells HPF (0-5); Band 9 % (5-11); Burr Cells SLIGHT = 2-5 cells HPF (0-1); Lymphocytes 6 % (21-51); Macrocytosis SLIGHT = 6-15 cells HPF (0-5); Monocytes 10 % (0-10); Neutrophil 73 % (42-75); Nucleated RBC (Manual Ct) 2 % (0); Platelet Adequacy Comment Platelets Normal; Polychromasia MODERATE = 3-4 cells HPF (0-2); Reactive Lymphocytes 2 % (0-10)
[2024-07-31] MEDS ORDERED: Iopamidol-370 76% 500 ML MDV (1 ML CHARGE) ONE (10:38)
[2024-07-31] MEDS: Fluconazole In NaCl,Iso-Osm 400 MG in Premix 1 BAG IVPB SCH (12:28)
[2024-07-31] MEDS: Lactated Ringer's 1,000 ML IV SCH (13:55)
[2024-07-31] MEDS: Acetaminophen 650 MG Suppository PR PRN (19:43)
[2024-07-31] MEDS: Morphine 2 MG/ML VIAL SLOW IVP SCH (19:53)
[2024-07-31] MEDS: Meropenem 1 GM in Sodium Chloride 0.9% 100 ML IVPB SCH (22:02)
[2024-07-31] MEDS: Morphine 4 MG/ML VIAL SLOW IVP PRN (22:56)
[2024-07-31] MEDS: Vancomycin (BATCH) 2.5 GM in Premix 1 BAG IVPB SCH (22:57)
[2024-08-01 04:57] LABS: Hematocrit 29.3 % (42.0-52.0); Hemoglobin 9.9 g/dL (14.0-18.0); Mean Corpuscular HGB CONC 33.8 g/dL (32.0-36.0); Mean Corpuscular Hemoglobin 30.5 pg (27.0-31.0); Mean Corpuscular Volume 90.2 fL (78.0-98.0); Mean Platelet Volume 10.7 fL (7.4-10.4); Platelet Count 336 10x3/uL (130-400); RBC Distribution Width 13.7 % (11.5-14.5); Red Blood Cell (RBC) Count 3.25 mill/uL (4.70-6.10)
[2024-08-01 05:11] LABS: Vancomycin, Random 25.4 ug/mL (See Comment)
[2024-08-01 05:15] LABS: Anion Gap 13 mmol/L (10-20); BUN (Urea Nitrogen) 14 mg/dL (8.4-25.7); Calc. Creatinine Clearance 126 mL/min (70-130); Calcium 8.1 mg/dL (7.8-10.44); Carbon Dioxide 20 mmol/L (23-31); Chloride 110 mmol/L (98-107); Estimated GFR 101; Glucose 87 mg/dL (80-115); Magnesium 2.2 mg/dL (1.6-2.6); Phosphorus 3.9 mg/dL (2.3-4.7); Potassium 3.8 mmol/L (3.5-5.1); Sodium 139 mmol/L (136-145)
[2024-08-01 05:29] LABS: Band 3 % (5-11); Burr Cells SLIGHT = 2-5 cells HPF (0-1); Eosinophils 1 % (0-10); Large Platelets 2.9 % (0-5); Lymphocytes 5 % (21-51); Monocytes 7 % (0-10); Neutrophil 84 % (42-75); Platelet Adequacy Comment Platelets Normal; Polychromasia SLIGHT = 2-3 cells HPF (0-2); Smudge Cells 3.9 %; Toxic Granulation SLIGHT
[2024-08-01] MEDS: Meropenem 1 GM in Sodium Chloride 0.9% 100 ML IVPB SCH (06:32)
[2024-08-01 07:39] LABS: Vancomycin, Trough 20.3 ug/mL
[2024-08-01] MEDS: Vancomycin (BATCH) 1.25 GM in Premix 1 BAG IVPB SCH (09:38)
[2024-08-01] MEDS ORDERED: Electrolyte Replacement Protocol FS PRN (11:45)
[2024-08-01] MEDS: Amino Acids 4.25 %/Dextrose 5% 1,000 ML IV SCH (12:46)
[2024-08-01] MEDS: Lactated Ringer's 1,000 ML IV SCH (14:55)
[2024-08-02 04:06] LABS: Hematocrit 31.4 % (42.0-52.0); Hemoglobin 10.5 g/dL (14.0-18.0); Mean Corpuscular HGB CONC 33.4 g/dL (32.0-36.0); Mean Corpuscular Hemoglobin 31.1 pg (27.0-31.0); Mean Corpuscular Volume 92.9 fL (78.0-98.0); Mean Platelet Volume 10.6 fL (7.4-10.4); Platelet Count 391 10x3/uL (130-400); RBC Distribution Width 13.6 % (11.5-14.5); Red Blood Cell (RBC) Count 3.38 mill/uL (4.70-6.10)
[2024-08-02 04:47] LABS: Anion Gap 13 mmol/L (10-20); BUN (Urea Nitrogen) 13 mg/dL (8.4-25.7); Calc. Creatinine Clearance 126 mL/min (70-130); Calcium 8.3 mg/dL (7.8-10.44); Carbon Dioxide 19 mmol/L (23-31); Chloride 107 mmol/L (98-107); Estimated GFR 101; Glucose 101 mg/dL (80-115); Potassium 3.6 mmol/L (3.5-5.1); Sodium 135 mmol/L (136-145)
[2024-08-02 05:02] VITALS: BMI 28.3
[2024-08-02 06:50] LABS: Anisocytosis MODERATE=16-30 cells HPF (0-5); Band 4 % (5-11); Burr Cells SLIGHT = 2-5 cells HPF (0-1); Eosinophils 1 % (0-10); Lymphocytes 5 % (21-51); Macrocytosis SLIGHT = 6-15 cells HPF (0-5); Monocytes 7 % (0-10); Neutrophil 83 % (42-75); Platelet Adequacy Comment Platelets Normal; Polychromasia MODERATE = 3-4 cells HPF (0-2)
[2024-08-02] MEDS: Amino Acids 4.25 %/Dextrose 5% 1,000 ML IV SCH (11:27)
[2024-08-02 12:01] VITALS: BMI 28.3
[2024-08-03 03:52] LABS: #Basophils 0.06 10x3/uL (0.0-0.2); %Basophils 0.3 % (0.0-1.0); %Lymphocytes 10.5 % (21.0-51.0); %Monocytes 10.1 % (0.0-10.0); %Neutrophils 76.7 % (42.0-75.0); Hematocrit 33.2 % (42.0-52.0); Hemoglobin 11.3 g/dL (14.0-18.0); Mean Corpuscular Hemoglobin 30.1 pg (27.0-31.0); Mean Corpuscular Volume 88.5 fL (78.0-98.0); Mean Platelet Volume 10.2 fL (7.4-10.4); Platelet Count 487 10x3/uL (130-400); RBC Distribution Width 13.3 % (11.5-14.5); Red Blood Cell (RBC) Count 3.75 mill/uL (4.70-6.10)
[2024-08-03 04:08] LABS: Vancomycin, Random 17.2 ug/mL (See Comment)
[2024-08-03 04:09] LABS: Anion Gap 12 mmol/L (10-20); BUN (Urea Nitrogen) 13 mg/dL (8.4-25.7); Calc. Creatinine Clearance 129 mL/min (70-130); Calcium 8.5 mg/dL (7.8-10.44); Carbon Dioxide 20 mmol/L (23-31); Chloride 107 mmol/L (98-107); Estimated GFR 101; Glucose 121 mg/dL (80-115); Potassium 3.5 mmol/L (3.5-5.1); Sodium 135 mmol/L (136-145)
[2024-08-03] MEDS: Potassium Chloride 20 MEQ in Premix 1 BAG IVPB SCH (06:43)
[2024-08-03] MEDS: Acetaminophen 325 MG TAB PO PRN (09:40)
[2024-08-03 14:01] LABS: Potassium 3.8 mmol/L (3.5-5.1)
[2024-08-03] MEDS: Amino Acids 4.25 %/Dextrose 5% 1,000 ML IV SCH (19:56)
[2024-08-04 06:08] LABS: #Basophils 0.06 10x3/uL (0.0-0.2); %Basophils 0.3 % (0.0-1.0); %Eosinophils 1.8 % (0.0-10.0); %Lymphocytes 9.4 % (21.0-51.0); %Monocytes 10.2 % (0.0-10.0); %Neutrophils 76.8 % (42.0-75.0); Hematocrit 33.1 % (42.0-52.0); Hemoglobin 11.1 g/dL (14.0-18.0); Mean Corpuscular HGB CONC 33.5 g/dL (32.0-36.0); Mean Corpuscular Hemoglobin 30.6 pg (27.0-31.0); Mean Corpuscular Volume 91.2 fL (78.0-98.0); Mean Platelet Volume 9.7 fL (7.4-10.4); Platelet Count 538 10x3/uL (130-400); RBC Distribution Width 13.3 % (11.5-14.5); Red Blood Cell (RBC) Count 3.63 mill/uL (4.70-6.10)
[2024-08-04 06:22] LABS: Anion Gap 14 mmol/L (10-20); BUN (Urea Nitrogen) 19 mg/dL (8.4-25.7); Calc. Creatinine Clearance 131 mL/min (70-130); Calcium 8.5 mg/dL (7.8-10.44); Carbon Dioxide 17 mmol/L (23-31); Chloride 111 mmol/L (98-107); Estimated GFR 101; Glucose 105 mg/dL (80-115); Magnesium 2.3 mg/dL (1.6-2.6); Potassium 3.6 mmol/L (3.5-5.1); Sodium 138 mmol/L (136-145)
[2024-08-04] MEDS: HYDROcodone/Acetaminophen 5/325 mg Tablet PO PRN (14:00)
[2024-08-05 06:29] LABS: #Basophils 0.09 10x3/uL (0.0-0.2); %Basophils 0.5 % (0.0-1.0); %Eosinophils 1.9 % (0.0-10.0); %Lymphocytes 11.9 % (21.0-51.0); %Monocytes 11.9 % (0.0-10.0); %Neutrophils 72.3 % (42.0-75.0); Hematocrit 32.9 % (42.0-52.0); Mean Corpuscular HGB CONC 33.4 g/dL (32.0-36.0); Mean Corpuscular Hemoglobin 30.7 pg (27.0-31.0); Mean Corpuscular Volume 91.9 fL (78.0-98.0); Mean Platelet Volume 10.3 fL (7.4-10.4); Platelet Count 575 10x3/uL (130-400); RBC Distribution Width 13.4 % (11.5-14.5); Red Blood Cell (RBC) Count 3.58 mill/uL (4.70-6.10)
[2024-08-05 06:44] LABS: Vancomycin, Random 17.8 ug/mL (See Comment)
[2024-08-05 06:46] LABS: Anion Gap 12 mmol/L (10-20); BUN (Urea Nitrogen) 17 mg/dL (8.4-25.7); Calc. Creatinine Clearance 123 mL/min (70-130); Calcium 8.7 mg/dL (7.8-10.44); Carbon Dioxide 18 mmol/L (23-31); Chloride 110 mmol/L (98-107); Estimated GFR 99; Glucose 92 mg/dL (80-115); Potassium 3.8 mmol/L (3.5-5.1); Sodium 136 mmol/L (136-145)
[2024-08-06 05:56] LABS: %Basophils 0.5 % (0.0-1.0); %Eosinophils 1.8 % (0.0-10.0); %Lymphocytes 11.9 % (21.0-51.0); %Monocytes 11.3 % (0.0-10.0); %Neutrophils 73.6 % (42.0-75.0); Hematocrit 34.3 % (42.0-52.0); Hemoglobin 11.4 g/dL (14.0-18.0); Mean Corpuscular HGB CONC 33.2 g/dL (32.0-36.0); Mean Corpuscular Hemoglobin 30.8 pg (27.0-31.0); Mean Corpuscular Volume 92.7 fL (78.0-98.0); Mean Platelet Volume 9.5 fL (7.4-10.4); Platelet Count 713 10x3/uL (130-400); RBC Distribution Width 13.2 % (11.5-14.5)
[2024-08-06 06:22] LABS: Anion Gap 14 mmol/L (10-20); BUN (Urea Nitrogen) 16 mg/dL (8.4-25.7); Calc. Creatinine Clearance 112 mL/min (70-130); Calcium 9.1 mg/dL (7.8-10.44); Carbon Dioxide 19 mmol/L (23-31); Chloride 106 mmol/L (98-107); Estimated GFR 96; Glucose 96 mg/dL (80-115); Sodium 135 mmol/L (136-145)
[2024-08-06] MEDS: Pantoprazole DR 40 MG TAB PO SCH (08:07)
[2024-08-06] MEDS ORDERED: Iopamidol 370 76% 100 ML VIAL ONE (10:05)
[2024-08-07 05:28] LABS: #Basophils 0.11 10x3/uL (0.0-0.2); %Basophils 0.7 % (0.0-1.0); %Eosinophils 2.8 % (0.0-10.0); %Lymphocytes 16.6 % (21.0-51.0); %Monocytes 10.5 % (0.0-10.0); %Neutrophils 68.7 % (42.0-75.0); Hematocrit 32.7 % (42.0-52.0); Hemoglobin 10.6 g/dL (14.0-18.0); Mean Corpuscular HGB CONC 32.4 g/dL (32.0-36.0); Mean Corpuscular Hemoglobin 29.8 pg (27.0-31.0); Mean Corpuscular Volume 91.9 fL (78.0-98.0); Mean Platelet Volume 9.4 fL (7.4-10.4); Platelet Count 783 10x3/uL (130-400); RBC Distribution Width 13.2 % (11.5-14.5); Red Blood Cell (RBC) Count 3.56 mill/uL (4.70-6.10)
[2024-08-07 05:40] LABS: Anion Gap 14 mmol/L (10-20); BUN (Urea Nitrogen) 14 mg/dL (8.4-25.7); Calc. Creatinine Clearance 114 mL/min (70-130); Carbon Dioxide 20 mmol/L (23-31); Chloride 109 mmol/L (98-107); Estimated GFR 97; Glucose 97 mg/dL (80-115); Potassium 3.9 mmol/L (3.5-5.1); Sodium 139 mmol/L (136-145); Vancomycin, Random 22.1 ug/mL (See Comment)
[2024-08-07] MEDS ORDERED: GASTROGRAFIN 30 ML BOT ONE (10:31)
[2024-08-07] MEDS ORDERED: Iopamidol-370 76% 500 ML MDV (1 ML CHARGE) ONE (10:31)
[2024-08-08 06:22] LABS: #Basophils 0.13 10x3/uL (0.0-0.2); %Basophils 0.8 % (0.0-1.0); %Eosinophils 2.4 % (0.0-10.0); %Lymphocytes 15.5 % (21.0-51.0); %Monocytes 10.8 % (0.0-10.0); %Neutrophils 69.8 % (42.0-75.0); Hematocrit 32.3 % (42.0-52.0); Hemoglobin 10.7 g/dL (14.0-18.0); Mean Corpuscular HGB CONC 33.1 g/dL (32.0-36.0); Mean Corpuscular Hemoglobin 30.5 pg (27.0-31.0); Mean Platelet Volume 9.2 fL (7.4-10.4); Platelet Count 849 10x3/uL (130-400); RBC Distribution Width 13.4 % (11.5-14.5); Red Blood Cell (RBC) Count 3.51 mill/uL (4.70-6.10)
[2024-08-08 06:37] LABS: Anion Gap 13 mmol/L (10-20); BUN (Urea Nitrogen) 22 mg/dL (8.4-25.7); Calc. Creatinine Clearance 59 mL/min (70-130); Carbon Dioxide 21 mmol/L (23-31); Chloride 109 mmol/L (98-107); Estimated GFR 46; Glucose 96 mg/dL (80-115); Potassium 4.1 mmol/L (3.5-5.1); Sodium 139 mmol/L (136-145)
[2024-08-08] MEDS ORDERED: Sodium Bicarbonate 0.5 MEQ/ML SDV 10 ML ONE (07:41)
[2024-08-08] MEDS ORDERED: Lidocaine 1% PF 5 ML VIAL ONE (07:41)
[2024-08-08] MEDS ORDERED: Lactated Ringer's 500 ML IV SCH (07:45)
[2024-08-08] MEDS: Fluconazole 100 MG TAB PO SCH (08:13)
[2024-08-08] MEDS: dilTIAZem 30 MG TAB PO SCH (08:13)
[2024-08-08] MEDS: Escitalopram Oxalate 20 mg Tablet PO SCH (08:14)
[2024-08-08] MEDS: Amiodarone 200 MG TAB PO SCH (08:14)
[2024-08-08] MEDS: Meropenem 2 GM in Sodium Chloride 0.9% 100 ML IVPB SCH (17:12)
[2024-08-08] MEDS ORDERED: Meropenem 1 GM in Sodium Chloride 0.9% 100 ML IVPB SCH (18:00)
[2024-08-08] MEDS: QUEtiapine 25 MG TAB PO PRN (19:58)
[2024-08-09 05:43] LABS: #Basophils 0.09 10x3/uL (0.0-0.2); %Basophils 0.7 % (0.0-1.0); %Eosinophils 2.3 % (0.0-10.0); %Lymphocytes 17.9 % (21.0-51.0); %Monocytes 9.9 % (0.0-10.0); %Neutrophils 68.8 % (42.0-75.0); Hematocrit 32.4 % (42.0-52.0); Hemoglobin 10.6 g/dL (14.0-18.0); Mean Corpuscular HGB CONC 32.7 g/dL (32.0-36.0); Mean Corpuscular Volume 91.8 fL (78.0-98.0); Mean Platelet Volume 8.9 fL (7.4-10.4); Platelet Count 734 10x3/uL (130-400); RBC Distribution Width 13.3 % (11.5-14.5); Red Blood Cell (RBC) Count 3.53 mill/uL (4.70-6.10)
[2024-08-09 06:10] LABS: Anion Gap 11 mmol/L (10-20); BUN (Urea Nitrogen) 25 mg/dL (8.4-25.7); Calc. Creatinine Clearance 65 mL/min (70-130); Calcium 9.1 mg/dL (7.8-10.44); Carbon Dioxide 23 mmol/L (23-31); Chloride 107 mmol/L (98-107); Estimated GFR 52; Glucose 93 mg/dL (80-115); Potassium 4.3 mmol/L (3.5-5.1); Sodium 137 mmol/L (136-145)
[2024-08-09] MEDS ORDERED: Meropenem 2 GM in Sodium Chloride 0.9% 100 ML IVPB SCH (14:00)
[2024-08-09] MEDS: Meropenem 2 GM in Sodium Chloride 0.9% 100 ML IVPB SCH (15:24)
[2024-08-09 17:43] VITALS: BP 119/85; TEMP 98.1
== END 2024-08-09 19:01 | disposition home health service (06) | DRG 335 ==
LOC: SURG A 07:43 → MSONC 14:00 → CCU 07-26 05:32 → SURG A 08-03 11:22
PROVIDERS: ADMIT Specialist; ATTEND Specialist
PROC: 0DN80ZZ Release Small Intestine, Open Approach (ICD-10-PCS; principal; 2024-07-25)
PROC: 3E03329 Introduction of Other Anti-infective into Peripheral Vein, Percutaneous Approach (ICD-10-PCS; 2024-07-25)
PROC: 3E033XZ Introduction of Vasopressor into Peripheral Vein, Percutaneous Approach (ICD-10-PCS; 2024-07-25)
PROC: 30233J1 Transfusion of Nonautologous Serum Albumin into Peripheral Vein, Percutaneous Approach (ICD-10-PCS; 2024-07-25)
PROC: 0DH60UZ Insertion of Feeding Device into Stomach, Open Approach (ICD-10-PCS; 2024-07-26)
PROC: 3E03329 Introduction of Other Anti-infective into Peripheral Vein, Percutaneous Approach (ICD-10-PCS; 2024-07-26)
PROC: 5A1945Z Respiratory Ventilation, 24-96 Consecutive Hours (ICD-10-PCS; 2024-07-26)
PROC: 5A0945A Assistance with Respiratory Ventilation, 24-96 Consecutive Hours, High Flow/Velocity Cannula (ICD-10-PCS; 2024-07-29)
PROC: 02HV33Z Insertion of Infusion Device into Superior Vena Cava, Percutaneous Approach (ICD-10-PCS; 2024-08-08)
PROC: B5181ZA Fluoroscopy of Superior Vena Cava using Low Osmolar Contrast, Guidance (ICD-10-PCS; 2024-08-08)
DX: K56.609 Unspecified intestinal obstruction, unspecified as to partial versus complete obstruction (principal); A41.9 Sepsis, unspecified organism; J95.821 Acute postprocedural respiratory failure; R57.8 Other shock; K65.9 Peritonitis, unspecified; G93.41 Metabolic encephalopathy; L03.311 Cellulitis of abdominal wall; K91.89 Other postprocedural complications and disorders of digestive system; K91.71 Accidental puncture and laceration of a digestive system organ or structure during a digestive system procedure; E87.1 Hypo-osmolality and hyponatremia; K44.9 Diaphragmatic hernia without obstruction or gangrene; Z90.49 Acquired absence of other specified parts of digestive tract; Z79.899 Other long term (current) drug therapy; N40.0 Benign prostatic hyperplasia without lower urinary tract symptoms; M19.90 Unspecified osteoarthritis, unspecified site; Z98.890 Other specified postprocedural states; K56.7 Ileus, unspecified; I48.91 Unspecified atrial fibrillation
CPT/HCPCS: 36415; 36569; 36600; 43753; 71045; 71260; 71275; 74018; 74177; 76937; 77001; 80048; 80053; 80202; 82140; 82805; 83605; 83690; 83735; 84100; 84145; 85025; 87040; 93005; 93010; 94002; 94003; 96365; 96366; 96375; 96376; 97139; A4314; C1713; C1751; C1776; J0171; J0282; J0665; J1100; J1170; J1450; J1650; J1885; J1940; J2060; J2183; J2185; J2250; J2272; J2405; J2470; J2543; J2704; J3010; J3370; J3411; J3475; J3480; J3490; J7030; J7070; J7120; P9047; Q9963; Q9967

== ENCOUNTER 2024-09-19 01:29 | Inpatient (IN) | payer OTHER ==
[2024-09-19 03:17] LABS: #Basophils 0.06 10x3/uL (0.0-0.2); %Basophils 0.4 % (0.0-1.0); %Eosinophils 1.9 % (0.0-10.0); %Lymphocytes 16.5 % (21.0-51.0); %Monocytes 9.4 % (0.0-10.0); %Neutrophils 71.4 % (42.0-75.0); Hematocrit 30.5 % (42.0-52.0); Mean Corpuscular HGB CONC 32.8 g/dL (32.0-36.0); Mean Corpuscular Volume 91.6 fL (78.0-98.0); Mean Platelet Volume 9.3 fL (7.4-10.4); Platelet Count 348 10x3/uL (130-400); Red Blood Cell (RBC) Count 3.33 mill/uL (4.70-6.10)
[2024-09-19 03:33] LABS: ALT (SGPT) 48 U/L (8-55); AST (SGOT) 29 U/L (5-34); Alkaline Phosphatase 115 U/L (40-110); Anion Gap 14 mmol/L (10-20); BUN (Urea Nitrogen) 26 mg/dL (8.4-25.7); Bilirubin, Total 0.4 mg/dL (0.2-1.2); Calc. Creatinine Clearance 0 mL/min (70-130); Calcium 8.6 mg/dL (7.8-10.44); Carbon Dioxide 21 mmol/L (23-31); Chloride 102 mmol/L (98-107); Estimated GFR 72; Globulin 3.2 g/dL (2.4-3.5); Glucose 103 mg/dL (80-115); Potassium 4.4 mmol/L (3.5-5.1); Protein, Total 6.2 g/dL (5.8-8.1); Sodium 133 mmol/L (136-145)
[2024-09-19 03:35] LABS: Troponin I Less than 0.010 ng/mL (< 0.028)
[2024-09-19] MEDS ORDERED: Sodium Chloride 0.9% 100 ML ONE (04:56)
[2024-09-19] MEDS ORDERED: Cefepime 2 GM VIAL ONE (04:56)
[2024-09-19 05:33] LABS: Bacteria/HPF None Seen HPF (None Seen); Bilirubin Negative (Negative); Blood, Urine Negative (Negative); CAUTI Indications for Culture Fever or rigors; Clarity Clear (Clear); Glucose, Urine (Dipstick) Normal (Negative); Ketone, Urine Negative (Negative); Leukocyte Negative Leu/uL (Negative); Nitrite Negative (Negative); Protein, Urine (Dipstick) Negative (Neg-Trace); RBC/HPF 0-3 HPF (0-3); Specific Gravity, Urine 1.003 (1.002-1.036); Squamous Epithelial None Seen HPF (0-3); Urobilinogen Normal mg/dL (Less than 2); WBC/HPF 0-3 HPF (0-3)
[2024-09-19 05:40] LABS: Urine Culture Reflex No No
[2024-09-19] MEDS ORDERED: Ketorolac Tromethamine 30 MG (1 mL) VIAL ONE (06:20)
[2024-09-19 06:23] LABS: Troponin I Less than 0.010 ng/mL (< 0.028)
[2024-09-19 07:26] VITALS: BMI 26.6
[2024-09-19] MEDS ORDERED: Ondansetron ODT 4 MG TAB PO PRN (07:51)
[2024-09-19] MEDS ORDERED: Acetaminophen 325 MG TAB PO PRN (07:51)
[2024-09-19] MEDS ORDERED: Senokot S 8.6-50 MG TAB PO PRN (07:51)
[2024-09-19] MEDS: Vancomycin 1.5 GRAM/300 ML BAG 1.5 GM in Premix 1 BAG IVPB SCH (08:01)
[2024-09-19] MEDS: Enoxaparin 40 MG (0.4 mL) SYRINGE SC SCH (09:04)
[2024-09-19 09:48] LABS: Troponin I Less than 0.010 ng/mL (< 0.028)
[2024-09-19] MEDS: Meropenem 2 GM in Sodium Chloride 0.9% 100 ML IVPB SCH (12:59)
[2024-09-19] MEDS ORDERED: Buprenorphine 2mg/Naloxone 0.5mg per 1 FILM SL PRN (15:27)
[2024-09-19] MEDS ORDERED: OXYCODONE HCL PO PRN (15:27)
[2024-09-19] MEDS ORDERED: ACETAMINOPHEN PO PRN (15:27)
[2024-09-19] MEDS ORDERED: [UNRECOGNIZED DRUG - OTHER] PO PRN (15:27)
[2024-09-19] MEDS ORDERED: Iopamidol-370 76% 500 ML MDV (1 ML CHARGE) ONE (15:36)
[2024-09-19] MEDS: oxyCODONE 5 MG TAB PO PRN (16:21)
[2024-09-19] MEDS: Acetaminophen 325 MG TAB PO PRN (16:21)
[2024-09-19] MEDS: Vancomycin 1 GM in Premix 1 BAG IVPB SCH (17:01)
[2024-09-19] MEDS: Gabapentin 300 MG CAP PO SCH (19:43)
[2024-09-19] MEDS: Tamsulosin HCl 0.4 MG CAP PO SCH (19:43)
[2024-09-19] MEDS: Melatonin 3 MG TAB PO SCH (20:44)
[2024-09-19] MEDS ORDERED: Milnacipran Hcl [Savella] 50 MG Tablet PO SCH (21:00)
[2024-09-20 05:55] LABS: #Basophils 0.09 10x3/uL (0.0-0.2); %Basophils 1.1 % (0.0-1.0); %Eosinophils 6.8 % (0.0-10.0); %Lymphocytes 24.3 % (21.0-51.0); %Monocytes 14.8 % (0.0-10.0); %Neutrophils 52.7 % (42.0-75.0); Hematocrit 31.2 % (42.0-52.0); Hemoglobin 10.2 g/dL (14.0-18.0); Mean Corpuscular HGB CONC 32.7 g/dL (32.0-36.0); Mean Corpuscular Hemoglobin 30.1 pg (27.0-31.0); Mean Platelet Volume 9.3 fL (7.4-10.4); Platelet Count 378 10x3/uL (130-400); RBC Distribution Width 15.3 % (11.5-14.5); Red Blood Cell (RBC) Count 3.39 mill/uL (4.70-6.10)
[2024-09-20 06:05] LABS: Anion Gap 11 mmol/L (10-20); BUN (Urea Nitrogen) 17 mg/dL (8.4-25.7); Calc. Creatinine Clearance 97 mL/min (70-130); Calcium 8.7 mg/dL (7.8-10.44); Carbon Dioxide 23 mmol/L (23-31); Chloride 108 mmol/L (98-107); Estimated GFR 91; Glucose 90 mg/dL (80-115); Sodium 138 mmol/L (136-145); Vancomycin, Random 15.3 ug/mL (See Comment)
[2024-09-20] MEDS: Pantoprazole DR 40 MG TAB PO SCH (08:08)
[2024-09-20] MEDS: Escitalopram Oxalate 20 mg Tablet PO SCH (08:08)
[2024-09-20] MEDS: Folic Acid 1 MG TAB PO SCH (08:08)
[2024-09-20 21:06] VITALS: BMI 26.6
[2024-09-20] MEDS: Vancomycin (BATCH) 1.5 GM in Premix 1 BAG IVPB SCH (21:23)
[2024-09-20] MEDS: Amitriptyline HCl 25 MG TAB PO PRN (21:37)
[2024-09-21 05:49] LABS: %Basophils 1.1 % (0.0-1.0); %Eosinophils 6.3 % (0.0-10.0); %Lymphocytes 37.1 % (21.0-51.0); %Monocytes 15.2 % (0.0-10.0); %Neutrophils 40.1 % (42.0-75.0); Hemoglobin 9.3 g/dL (14.0-18.0); Mean Corpuscular HGB CONC 32.1 g/dL (32.0-36.0); Mean Corpuscular Hemoglobin 30.1 pg (27.0-31.0); Mean Corpuscular Volume 93.9 fL (78.0-98.0); Mean Platelet Volume 8.9 fL (7.4-10.4); Platelet Count 357 10x3/uL (130-400); RBC Distribution Width 15.5 % (11.5-14.5); Red Blood Cell (RBC) Count 3.09 mill/uL (4.70-6.10)
[2024-09-21 06:02] LABS: Anion Gap 11 mmol/L (10-20); BUN (Urea Nitrogen) 14 mg/dL (8.4-25.7); Calc. Creatinine Clearance 96 mL/min (70-130); Calcium 8.2 mg/dL (7.8-10.44); Carbon Dioxide 23 mmol/L (23-31); Chloride 110 mmol/L (98-107); Estimated GFR 89; Glucose 93 mg/dL (80-115); Potassium 3.8 mmol/L (3.5-5.1); Sodium 140 mmol/L (136-145)
[2024-09-21 11:19] VITALS: BP 107/71; TEMP 97.8
== END 2024-09-21 13:59 | disposition home or self-care (01) | DRG 872 ==
LOC: ERS 01:29 → T4-A 06:32
PROVIDERS: ADMIT Student in an Organized Health Care Education/Training Program; ATTEND Internal Medicine
DX: A41.9 Sepsis, unspecified organism (principal); L03.311 Cellulitis of abdominal wall; D84.89 Other immunodeficiencies; N40.0 Benign prostatic hyperplasia without lower urinary tract symptoms; Z98.890 Other specified postprocedural states; Z90.49 Acquired absence of other specified parts of digestive tract; R65.20 Severe sepsis without septic shock
CPT/HCPCS: 36415; 71045; 74177; 80048; 80053; 80202; 81001; 83605; 83880; 84145; 84484; 85025; 87040; 87070; 87077; 87086; 87186; 87205; 93005; 94760; 96374; 96375; 97139; J0692; J1650; J1885; J2183; J3370; J3370-JW; Q9967